=== PATIENT | male | born 1990 | race Caucasian/White ===

== ENCOUNTER 2023-03-19 06:13 | Day surgery (SDC) | payer MEDICAID ==
[2023-03-19] MEDS ORDERED: Propofol 200 MG/20 ML SDV ONE ×3 (06:50→08:10)
[2023-03-19] MEDS ORDERED: Midazolam 1 MG/ML 2 ML SDV ONE (06:50)
[2023-03-19] MEDS ORDERED: fentaNYL 50 MCG/ML SDV ONE (06:50)
[2023-03-19] MEDS ORDERED: Dextrose 5%-Lactated Ringers 1,000 ML IV SCH (07:00)
[2023-03-19] MEDS ORDERED: Glycopyrrolate 0.2 MG/ML 2 ML SDV IVPUSH ONE (07:30)
== END 2023-03-19 10:02 | disposition home or self-care (01) ==
LOC: JP.SDS 06:13
PROVIDERS: ATTEND Surgery
DX: K22.10 Ulcer of esophagus without bleeding (principal); K31.89 Other diseases of stomach and duodenum; K64.8 Other hemorrhoids; K22.89 Other specified disease of esophagus; K44.9 Diaphragmatic hernia without obstruction or gangrene; F32.A Depression, unspecified; K21.9 Gastro-esophageal reflux disease without esophagitis; K92.0 Hematemesis
CPT/HCPCS: 43239; 45398; 87081; 88305; J2250; J2704; J3010; J3490; J7121